=== PATIENT | female | born 1995 | race Caucasian/White ===

== ENCOUNTER 2023-04-24 15:50 | Emergency (ER) | payer BC, OTHER ==
[~2023-04-24] VITALS: Ht 154.9 cm; Wt 77.1 kg
[2023-04-24 16:52] VITALS: BP 144/99; PULSE 72; RESP 20; TEMP 99.2; O2SAT 100
[2023-04-24] MEDS ORDERED: KETOROLAC 30 MG/ML VIAL IM ONE (17:30)
[2023-04-24] MEDS ORDERED: NAPR-1704 PO (17:32)
[2023-04-24] MEDS ORDERED: DICL100G32 TP (17:32)
[2023-04-24] MEDS ORDERED: CAPS1ADH5 TP (17:32)
== END 2023-04-24 17:46 | disposition home or self-care (01) ==
LOC: MED 15:50
DX: M54.30 Sciatica, unspecified side (principal); Z79.899 Other long term (current) drug therapy
CPT/HCPCS: 81002; 81025; 96372; 99283; J1885